=== PATIENT | male | born 1975 | race Caucasian/White ===

== ENCOUNTER 2019-09-11 06:44 | Day surgery (SDC) | payer OTHER ==
[2019-09-10 08:43] LABS: ALANINE AMINOTRANSFERASE 79 U/L (12-78); ALBUMIN 4.2 g/dL (3.4-5.0); ANION GAP 7 mmol/L (5-15); CALCIUM 9.4 mg/dL (8.5-10.1); CHLORIDE 105 mmol/L (98-107); CREATININE 1.42 mg/dL (0.7-1.3)
[2019-09-10 08:45] LABS: ALKALINE PHOSPHATASE 71 U/L (45-117); BILIRUBIN,TOTAL 0.7 mg/dL (0.2-1.0); TOTAL PROTEIN 8.1 g/dL (6.4-8.2)
[~2019-09-11] VITALS: Ht 182.9 cm; Wt 101.7 kg
[~2019-09-11 06:44] MED LIST: ASPI-496 PO; ATOR40TA78 PO; BUPIVACAINE/PF 0.25% ONE; EPINEPHRINE 1 MG/ML, 1ML ONE; EXEN2PEN SQ; GLIP10TA13 PO; HYDR25TA6 PO; LISI-170 PO; METF850T10 PO; OMEP20TA62 PO; SITA50TA PO
[2019-09-11] MEDS ORDERED: FENTANYL PF 100 MCG/2ML ONE (07:24)
[2019-09-11] MEDS ORDERED: MIDAZOLAM 1 MG/ML, 2ML ONE (07:24)
[2019-09-11 07:25] VITALS: BP 125/86
[2019-09-11] MEDS ORDERED: LACTATED RINGERS 1,000 ML IV SCH (07:27)
[2019-09-11] MEDS ORDERED: LIDOCAINE 2% 100MG/5ML SYRINGE ONE (08:33)
[2019-09-11] MEDS ORDERED: FENTANYL PF 100 MCG/2ML IV PRN (09:00)
[2019-09-11] MEDS ORDERED: PROMETHAZINE 25 MG SUPP PR PRN (09:00)
[2019-09-11] MEDS ORDERED: ONDANSETRON 2MG/ML, 2ML IV PRN (09:00)
[2019-09-11] MEDS ORDERED: ONDANSETRON ODT 8 MG PO PRN (09:00)
[2019-09-11] MEDS ORDERED: PROMETHAZINE 25 MG/ML, 1ML IV PRN (09:00)
[2019-09-11] MEDS ORDERED: LABETALOL 5MG/ML, 20ML IV PRN (09:00)
[2019-09-11] MEDS ORDERED: OXYcodone 5 MG/5 ML ORAL.SOL UDC PO PRN (09:00)
[2019-09-11] MEDS ORDERED: HYDROmorphone 1 MG/ML, 1ML INJ IVPush PRN (09:00)
[2019-09-11] MEDS ORDERED: hydrALAzine 20 MG/ML, 1ML IV PRN (09:00)
[2019-09-11] MEDS ORDERED: LORazepam 2 MG/ML, 1ML IVPush PRN (09:00)
[2019-09-11] MEDS ORDERED: DEXAMETHASONE 4 MG/ML, 1ML ONE (09:04)
[2019-09-11] MEDS ORDERED: SUCCINYLCHOLINE 20 MG/ML, 10ML ONE (09:04)
[2019-09-11] MEDS ORDERED: PROPOFOL 10 MG/ML, 20ML ONE (09:04)
[2019-09-11] MEDS ORDERED: GLYCOPYRROLATE 0.2MG/1ML, 5ML ONE (09:04)
[2019-09-11] MEDS ORDERED: ROCURONIUM 10MG/ML,5ML ONE (09:04)
[2019-09-11] MEDS ORDERED: CEFAZOLIN 1,000 MG ONE (09:04)
[2019-09-11] MEDS ORDERED: ONDANSETRON 2MG/ML, 2ML ONE (09:04)
[2019-09-11] MEDS ORDERED: NEOSTIGMINE 1 MG/ML, 10ML ONE (09:04)
[2019-09-11] MEDS ORDERED: SUGAMMADEX 200 MG/2 ML IVPush ONE (09:27)
== END 2019-09-11 12:10 | disposition home or self-care (01) ==
LOC: OUT 06:44
PROVIDERS: ATTEND Orthopaedic Surgery
DX: S46.011A Strain of muscle(s) and tendon(s) of the rotator cuff of right shoulder, initial encounter (principal); S43.431A Superior glenoid labrum lesion of right shoulder, initial encounter; M75.41 Impingement syndrome of right shoulder; M19.011 Primary osteoarthritis, right shoulder; I10 Essential (primary) hypertension; E11.9 Type 2 diabetes mellitus without complications; Z79.82 Long term (current) use of aspirin; Z79.84 Long term (current) use of oral hypoglycemic drugs; Z79.899 Other long term (current) drug therapy; Z88.0 Allergy status to penicillin; X58.XXXA Exposure to other specified factors, initial encounter; Y93.89 Activity, other specified; Y92.89 Other specified places as the place of occurrence of the external cause; Y99.8 Other external cause status
CPT/HCPCS: 29823; 29824; 29826; 36415; 64415; 80053; 82962; 93005; J0171; J0690; J1100; J2250; J2405; J2704; J2710; J3010; J3490; J7120; J0330